=== PATIENT | female | born 2000 | race African-American/Black ===

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

== ENCOUNTER 2019-05-25 20:48 | Emergency (ER) | payer OTHER ==
[~2019-05-25] VITALS: Ht 180.3 cm; Wt 84.9 kg
[2019-05-25 21:02] VITALS: BP 129/75
== END 2019-05-25 22:58 | disposition left against medical advice (07) ==
LOC: ER 20:48
DX: Z53.21 Procedure and treatment not carried out due to patient leaving prior to being seen by health care provider (principal)

== ENCOUNTER 2021-04-24 16:35 | Emergency (ER) | payer OTHER ==
[~2021-04-24] VITALS: Ht 175.3 cm; Wt 77.0 kg
[2021-04-24 17:18] LABS: CLARITY URINE CLEAR (CLEAR); COLOR URINE YELLOW (YELLOW); KETONES URINE TRACE (NEGATIVE); LEUKOCYTE ESTERASE URINE TRACE (NEGATIVE); NITRITE URINE NEGATIVE (NEGATIVE); OCCULT BLOOD URINE NEGATIVE (NEGATIVE); PROTEIN URINE NEGATIVE (NEGATIVE); SPECIFIC GRAVITY URINE 1.022 (1.005-1.030); UROBILINOGEN URINE 0.2 E.U./dL (0.2-1.0)
[2021-04-24] MEDS ORDERED: ACETAMINOPHEN WITH CODEINE 300/30MG TABLET PO ONE (17:30)
[2021-04-24] MEDS ORDERED: LIDOCAINE HCL/EPINEPHRINE 1%-EPI 1:100,000 10 ML VIAL IJ ONE (17:30)
[2021-04-24] MEDS ORDERED: DOXY100C2 MT (18:53)
[2021-04-24] MEDS ORDERED: IBUP-2029 MT (18:53)
[2021-04-24] MEDS: LIDOCAINE HCL/EPINEPHRINE 1%-EPI 1:100,000 20 ML VIAL INFIL NR (19:11)
[2021-04-24 19:23] VITALS: BP 134/99
== END 2021-04-24 19:27 | disposition home or self-care (01) ==
LOC: ER 16:35
DX: N75.0 Cyst of Bartholin's gland (principal)
CPT/HCPCS: 56420; 81003; 81025; 99284; A4217; J3490; Z7610